=== PATIENT | male | born 1945 | race Caucasian/White ===

== ENCOUNTER → 2024-04-10 | Day surgery (SDC) | payer OTHER ==
[~2024-04-10] VITALS: Ht 172.7 cm; Wt 68.9 kg
[~2024-04-10] MED LIST: BALANCED SALT IRRIG SOLN 15ML ONE; BALANCED SALT IRRIG SOLN COMB1 500ML OP NR; BRIM10DR2 OP; CYCLOPENTOLATE HCL 1% OPHTH DROPS 2ML LEFTEYE NR; HYALURONATE SODIUM 10MG/ML 0.55ML SYRINGE IO ONE; HYDROMORPHONE HCL/PF 1MG/ML INJ IV PRN; IBUP-2030 PO; LATA2.5D14 OP; LOSA25TA26 PO; ONDANSETRON HCL 4MG/2ML INJ IV PRN; PHENYLEPHRINE HCL 10% OPHTH DROPS 5ML LEFTEYE SCH; PROPOFOL 200MG/20ML VIAL IV ONE; TROPICAMIDE 1% OPHTH DROPS 15ML LEFTEYE SCH
[2024-04-10] MEDS: LACTATED RINGERS 1,000 ML IV SCH (07:15)
== END | disposition home or self-care (01) ==
LOC: OR 06:20
PROVIDERS: ATTEND Ophthalmology
DX: H25.12 Age-related nuclear cataract, left eye (principal); I10 Essential (primary) hypertension; Z79.899 Other long term (current) drug therapy; Z98.890 Other specified postprocedural states
CPT/HCPCS: 66984; J3490 ×2; J2704; V2632